=== PATIENT | female | born 1985 | race Caucasian/White ===

== ENCOUNTER 2019-05-02 08:42 | Day surgery (SDC) | payer BC ==
[~2019-05-02] VITALS: Ht 157.5 cm; Wt 97.3 kg
[2019-05-02] VITALS (13 sets, daily range): BP systolic 85–131; BP diastolic 58–68; PULSE 42–86; RESP 13–21; Ht 157.5 cm; Wt 97.3 kg
[2019-05-02] MEDS ORDERED: LACTATED RINGER'S 1,000 ML IV SCH (10:00)
[2019-05-02] MEDS ORDERED: MIDAZOLAM 1 MG/ML 2 ML INJ ONE (10:24)
[2019-05-02] MEDS ORDERED: ROPIVACAINE 0.5 % 30 ML VIAL ONE ×2 (10:24→11:46)
--- NOTE | 2019-05-02 10:31 | PREAC ---
Date/Time of Note Date/Time of Note DATE: 05/02/19 TIME: 10:30 Anesthesia Eval and Record Evaluation Time Pre-Procedure Interview DATE: 05/02/19 TIME: 10:30 Age 34 Sex female NPO: 8 hrs Preoperative diagnosis L knee ACL injury Planned procedure L ACL reconstruction Past Medical History Past Medical History: Includes GI: Morbid obesity Surgery & Anesthesia Issues No known issue Meds Anticoagulation: No Beta Lesia within 24 hr: No Reason Beta Lesia not given: Pt. not on B-Lesia No Active Prescriptions or Reported Meds Current Medications Lactated Ringer's 1,000 ml @ 75 mls/hr [id number] IV Last administered on 05/02/19at 10:11; Admin Dose 75 MLS/HR; Start 05/02/19 at 10:00 Meds reviewed: Yes Allergies Coded Allergies: nut - unspecified (Verified Allergy, Unknown, 05/02/19) shellfish derived (Verified Allergy, Unknown, 05/02/19) Allergies Reviewed: Yes Labs/Studies Labs Reviewed: Reviewed by anesthesiologist test: Negative Pre-procedure Exam Last vitals Vital Signs Date Temp Pulse Resp B/P (MAP) Pulse Ox O2 O2 Flow FiO2 Time Delivery Rate 05/02/19 97.6 74 18 123/67 98 Room Air 09:53 (85) Airway: Adequate mouth opening, Adequate thyromental dist Mallampati: Mallampati II Teeth: Normal Lung: Normal Heart: Normal ASA Physical Status ASA physical status: 2 Emergency: None Planned Anesthetic General/MAC: ETT Nerve block: Femoral (left) Pre-operative Attestations Prior to commencing anesthesia and surgery, the patient was re-evaluated, there was verification of: *The patient's identity *The results of appropriate recent lab work and preoperative vital signs *The above evaluation not changing prior to induction *Anesthetic plan, risk benefits, alternative and complications discussed with patient/family; questions answered; patient/family understands, accepts and wishes to proceed. JULIANA ANGEL May 02, 2019 10:31
[2019-05-02] MEDS ORDERED: DIPHENHYDRAMINE 50 MG INJ IV PRN (11:00)
[2019-05-02] MEDS ORDERED: ALBUTEROL 0.083% (NEB) 2.5 MG/3 ML AMP HHN PRN (11:00)
[2019-05-02] MEDS ORDERED: OXYCODONE/ACETAMINOPHEN (5/325) TAB PO PRN (11:00)
[2019-05-02] MEDS ORDERED: HYDROmorphONE 1 MG/5 ML IV SYRINGE IV PRN ×3 (11:00)
[2019-05-02] MEDS ORDERED: METOCLOPRAMIDE 10 MG INJ IV PRN (11:00)
[2019-05-02] MEDS ORDERED: ONDANSETRON 4 MG INJ IV PRN (11:00)
[2019-05-02] MEDS ORDERED: FENTAnyl 50 MCG/ML VIAL IV PRN ×3 (11:00)
[2019-05-02] MEDS ORDERED: MEPERIDINE 25 MG INJ IV PRN (11:00)
--- NOTE | 2019-05-02 11:07 | HPN ---
Date/Time of Note Date/Time of Note DATE: 05/02/19 TIME: 11:07 Interval H&P Admission Note Pt. seen H&P reviewed: No system changes MIGUEL SCHULTZ MD May 02, 2019 11:07
[2019-05-02] MEDS ORDERED: FENTAnyl 50 MCG/ML VIAL ONE (11:16)
[2019-05-02] MEDS ORDERED: ACETAMINOPHEN 325 MG TAB PO PRN (11:30)
[2019-05-02] MEDS ORDERED: morphine 2 MG INJ IV PRN (11:30)
[2019-05-02] MEDS ORDERED: KETOROLAC 30 MG INJ IV ONE (11:30)
[2019-05-02] MEDS ORDERED: POLYMYXIN/BACITRACIN 1L IRRIG ONE (11:46)
[2019-05-02] MEDS ORDERED: BACITRACIN/POLYMYXIN 28.35 GM OINT TOP ONE (11:46)
[2019-05-02] MEDS ORDERED: SUCCINYLCHOLINE CHLORIDE 100 MG/5 ML SYG IV ONE (13:04)
[2019-05-02] MEDS ORDERED: CEFAZOLIN 1 GM INJ ONE (13:04)
[2019-05-02] MEDS ORDERED: SUGAMMADEX SODIUM 200 MG/2 ML VIAL IV ONE (13:04)
[2019-05-02] MEDS ORDERED: LIDOCAINE 100 MG SYRINGE ONE (13:04)
[2019-05-02] MEDS ORDERED: PROPOFOL 20 ML ONE (13:04)
[2019-05-02] MEDS ORDERED: ROCURONIUM 50 MG INJ ONE (13:04)
--- NOTE | 2019-05-02 13:11 | OPR ---
Date/Time of Note Date/Time of Note DATE: 05/02/19 TIME: 13:11 Operative Report Procedure Date: May 02, 2019 Preoperative Diagnosis Left knee lateral meniscus tear Left knee ACL tear Postoperative Diagnosis Left knee lateral meniscus tear Left knee ACL tear Operation/Procedure Performed Left knee arthroscopy with ACL reconstruction with tibialis anterior allograft size 10 Left knee arthroscopy with lateral meniscus repair Surgeon Miguel Schultz MD Kindergarten Instructional Assistant Tim West MD Anesthesia Type: general, other (Fascia iliacus regional block) Anesthesiologist: JULIANA ANGEL Tourniquet Time: 70 min at 250 mmHg Estimated Blood Loss: minimal Transfusion none Specimen none Grafts/Implants Mitek adjustable loop button Mitek bioIntrafix 8-10 Tibialis Anterior Allograft Tubes/Drains The patient is a 34 year-old female with a prolonged history of Left knee giving way after playing sport. She has had continued episodes of instability with catching and clicking over the past several months. The patient has restored their range of motion and is now brought to the operating room for ACL reconstruction, possible partial medial and lateral meniscectomy versus medial and lateral meniscal repair, chondroplasty and debridement. Risk Note: The risks, benefits, and alternatives of surgery were discussed with the patient. The risks included but were not limited to infection, bleeding, damage to vessels and nerves, loss of motion, continued pain, re-tear of the meniscus, deep venous thrombosis, and complications due to anesthesia including nerve injury, myocardial infarction, stroke, , etc. The patient stated understanding of the nature of the surgical procedure and gave written and verbal consent to proceed Complications none Pt Condition Post Procedure: stable Disposition: PACU Procedure Description Patient was met in the preoperative holding area and the correct operative extremity was confirmed with both patient and consent. Patient was given preoperative fascial iliacus block was placed. Patient was brought to the operative theater and placed supine on the operative table. Patient was given general anesthesia and preoperative antibiotics. The left lower extremity was examined under anesthesia. Range of motion was 0 degrees of extension to 135 degrees of flexion. There was no varus or valgus or posterolateral instability. She had no instability to varus or valgus stress at 0 or 30 degrees. She had a 2+ Trevin and drawer with a positive pivot shift The left lower extremity was then prepped and draped in the usual fashion. A tourniquet was placed proximally on the thigh over a bias stockinette. A standard anterolateral parapatellar stab wound was created. The knee joint was entered with a blunt-tipped obturator, followed by the 30-degree video arthroscope. An anteromedial portal was established under arthroscopic control. A routine arthroscopic survey was performed. The suprapatellar pouch was unremarkable. The undersurface of the patella was well-preserved. The patella appeared to track centrally within the trochlear groove. There was no chondromalacia under the lateral patella facet. The trochlea no chondromalacia. The medial and lateral gutters were inspected and there was no loose body seen. There was no hypertrophied plica. The popliteal hiatus was entered and was unremarkable. The lateral compartment was entered. The lateral femoral condyle exhibited grade 1 chondromalacia and the lateral tibial plateau showed no chondromalacia. There was no chondromalacia adjacent to the notch. There was no chondromalacia along the central aspect of the weight bearing lateral tibial plateau. The lateral meniscus torn in a horizontal manner that was treated with a meniscal rasp and then repaired with a Mitek truespan and a Ceterix repair device in a cerclage like fashion. The meniscus was then re probed and found to be stable. The intercondylar notch was visualized. The anterior cruciate ligament was torn from its femoral origin. Posteromedially there was no loose body seen. The posterior cruciate ligament was visualized and appeared intact although slightly strained. The medial compartment was entered. There is no chondromalacia to the medial tibial plateau or medial femoral condyle. The meniscus was probed and found to be stable. Attention was turned to reconstruction of the anterior cruciate ligament. Following exsanguination with an Esmarch bandage the tourniquet was inflated to 250 mm of mercury. Using a motorized shaver a limited notchplasty was performed, exposing the lateral wall and roof of the notch, identifying the [id number] position. The stump of the anterior cruciate ligament was debrided. A Vector guide was placed intra-articularly between the tibial spines in line with the anterior horn of the lateral meniscus. A Andrew wire was then inserted into the knee through a 2 cm incision made over the proximal medial tibia. The incision was deepened through the subcutaneous tissue with subperiosteal dissection achieved. Bl eeding points were coagulated with the Bovie electrocautery. The tibialis anterior allograft was prepped to create a size 10 graft on both the femoral and tibial side. Tibial drilling was then carried out first with a 6 mm followed by a 8 mm then a size 10 mm cylindrical reamer with the guide set at 55 degrees. Via an accessory medial portal, the Beath pin was drilled out the femoral cortex and skin with the knee in hyperflexion. The femoral tunnel was then created, with a spade tip guidewire, Depth-gauging confirmed a condyle length of 35 mm. Then reaming proceeded, with a 10 mm drill to a tunnel depth of 28 mm. A adjustable rigid loop Mitek button was selected. The graft was inserted intra-articularly and the Mitek button was deployed. The graft was cycled for 20 cycles with 25 pounds of force to pre-load the graft. Tibial fixation was carried out using a 8-10 Bio-IntraFix in 10 degrees of flexion with a posterior drawer. At the completion of surgery the patient had a firm stable Trevin. There was a negative pivot shift. The patient had a 0 firm Trevin and a negative pivot shift. There was no evidence for any roof or lateral wall impingement. The knee was irrigated with two liters of lactated Ringer's solution. Excess fluid was drained. The tibial wounds were then copiously irrigated with bacitracin solution and closed in layers with #0, #2-0 and #3-0 Vicryl. The skin was reapproximated with 3-0 then #4-0 Monocryl. The knee was injected with 20 cc of 0.5% plain ropivacaine. A dry sterile dressing was applied, followed by a bulky bandage and corrina wrap, insuring no contact with the skin. A postoperative TROM brace was applied locked in full extension. The patient was awakened in the Operating Room and transported to the Recovery Room in satisfactory condition. The patient appeared to tolerate the procedure well. At the completion of surgery the patient had soft compartments, palpable pulses, and brisk capillary refill. There were no complications noted. Patient begin partial weightbearing this coming couple days. With the brace locked in extension The Patient will begin aspirin 81 mg Po qday starting tomorrow. Kindergarten Instructional Assistant surgeon: An ict sales assistant orthopedic surgeon technical services assistant was needed for this case to assist with positioning of the limb during repair of the injury as well as assisting in fixation of the ACL and meniscus while holding the arthroscope. Without a qualified orthopedic surgeon in this case the case would be significantly more complex and longer. MIGUEL SCHULTZ MD May 02, 2019 13:11
--- NOTE | 2019-05-03 07:55 | PAC ---
Date/Time of Note Date/Time of Note DATE: 05/03/19 TIME: 07:55 Post-Anesthesia Notes Post-Anesthesia Note Last documented vital signs Vital Signs Date Temp Pulse Resp B/P (MAP) Pulse Ox O2 O2 Flow FiO2 Time Delivery Rate 05/02/19 97.8 83 16 105/58 100 14:20 (74) 05/02/19 Room Air 14:15 Activity: WNL Respiratory function: WNL Cardiovascular function: WNL Mental status: Baseline Pain reasonably controlled: Yes Hydration appropriate: Yes Nausea/Vomiting absent: Yes JULIANA ANGEL May 03, 2019 07:55
== END 2019-05-02 17:35 | disposition home or self-care (01) ==
LOC: SDS 08:42
PROVIDERS: ATTEND Orthopaedic Surgery
DX: S83.512D Sprain of anterior cruciate ligament of left knee, subsequent encounter (principal); S83.282D Other tear of lateral meniscus, current injury, left knee, subsequent encounter; X58.XXXD Exposure to other specified factors, subsequent encounter
CPT/HCPCS: 29881; 29888; 82306; 84703; C1762; J0690; J1170; J2001; J2175; J2250; J2405; J2765; J2795; J3010; Z7512; Z7610